=== PATIENT | female | born 1995 | race Caucasian/White ===

== ENCOUNTER 2020-05-26 18:00 | Emergency (ER) | payer BC ==
[2020-05-26] MEDS ORDERED: Sodium Chloride 0.9% 1,000 ML IV SCH (18:15)
[2020-05-26] MEDS ORDERED: Ondansetron 4 MG/2 ML SDV IVPUSH ONE (18:19)
--- NOTE | 2020-05-26 18:30 | EDM.PDOCBH ---
ED HPI GENERAL MEDICAL PROBLEM - General Stated Complaint: DISORIENTATED Time Seen by Provider: 05/26/20 18:26 Source of Information: Reports: Patient History Limitations: Reports: Intoxication - History of Present Illness INITIAL COMMENTS - FREE TEXT/NARRATIVE: Ivonne is brought by ambulance after she was found underneath a parked vehicle. [place],when she disappeared. She was found by a neighbor,apparently intoxicated. She complains of abdominal epigastric pain. She is not able to give much history.She is previously healthy except RA. - Related Data Allergies Allergy/AdvReac Type Severity Reaction Status Date / Time hydroxychloroquine Allergy Hives Verified 05/26/20 19:03 [From Plaquenil] Home Meds: Home Meds hydrOXYzine pamoate [Hydroxyzine Pamoate] 25 mg BID PRN 05/26/20 [History] ED ROS GENERAL - Review of Systems Review Of Systems: Unable To Obtain Reason Not Obtained: Altered mental status ED EXAM, BEHAVIORAL HEALTH - Physical Exam Exam: See Below Exam Limited By: Altered Mental Status General Appearance: Alert, No Apparent Distress Ears: Normal External Exam Nose: Normal Inspection Throat/Mouth: Normal Inspection Head: Atraumatic Neck: Normal Inspection Respiratory/Chest: No Respiratory Distress, Lungs Clear Cardiovascular: Normal Peripheral Pulses, Regular Rate, Rhythm (Female) Exam: Deferred Rectal (Female) Exam: Deferred Extremities: Normal Inspection Neurological: Alert. No: Normal Gait Psychiatric: Alert, Depressed Mood, Flat Affect, Disoriented. No: Normal Mood, Oriented Skin Exam: Warm, Dry, Intact COURSE, BEHAVIORAL HEALTH COMP - Course Vital Signs: Last Vital Signs Temp 96.7 F L 05/26/20 18:00 Pulse 80 05/26/20 18:00 Resp 16 05/26/20 18:00 BP 116/70 05/26/20 18:00 Pulse Ox 100 05/26/20 18:00 Orders, Labs, Meds: Active Orders 24 hr Category Date Time Status EKG Documentation Completion [RC] ASDIRECTED Care 05/26/20 18:03 Active Sodium Chloride 0.9% [Normal Saline] 1,000 ml Med 05/26/20 18:15 Active IV ASDIRECTED EKG 12 Lead [EK] Routine Ther 05/26/20 18:03 Ordered Medication Orders Sodium Chloride (Normal Saline) 1,000 mls @ 999 mls/hr IV ASDIRECTED BEVERLY Last Admin: 05/26/20 18:15 Dose: 999 mls/hr Documented by: KELSI Laboratory Tests 05/26/20 05/26/20 05/26/20 Range/Units 18:15 18:15 18:15 WBC 4.7 (4.5-12.0) X10-3/uL RBC 4.82 (3.23-5.20) x10(6)uL Hgb 13.4 (11.5-15.5) g/dL Hct 41.8 (30.0-51.3) % MCV 86.6 (80-96) fL MCH 27.7 (27.7-33.6) pg MCHC 32.0 L (32.2-35.4) g/dL RDW 12.8 (11.5-15.5) % Plt Count 283 (125-369) X10(3)uL MPV 7.2 L (7.4-10.4) fL Neut % (Auto) 55.0 (46-82) % Lymph % (Auto) 35.6 (13-37) % [place] % (Auto) 5.3 (4-12) % Eos % (Auto) 3 (1.0-5.0) % Baso % (Auto) 1 (0-2) % Neut # (Auto) 2.6 (1.6-8.3) # Lymph # (Auto) 1.7 (0.6-5.0) # [place] # (Auto) 0.2 (0.0-1.3) # Eos # (Auto) 0.2 (0.0-0.8) # Baso # (Auto) 0.0 (0.0-0.2) # Sodium 145 (135-145) mmol/L Potassium 3.1 L (3.5-5.3) mmol/L Chloride 109 (100-110) mmol/L Carbon Dioxide 21 (21-32) mmol/L BUN 9 (7-18) mg/dL Creatinine 0.6 (0.55-1.02) mg/dL Est Cr Clr Drug Dosing TNP Estimated GFR (MDRD) > 60 (>60) BUN/Creatinine Ratio 15.0 (9-20) Glucose 83 (80-116) mg/dL Calcium 8.4 L (8.6-10.2) mg/dL Total Bilirubin 0.3 (0.1-1.3) mg/dL AST 19 (5-25) IU/L ALT 18 (12-36) U/L Alkaline Phosphatase 62 (56-112) IU/L Total Protein 7.5 (6.0-8.0) g/dL Albumin 3.9 (3.5-5.2) g/dL Globulin 3.6 g/dL Albumin/Globulin Ratio 1.1 HCG, Quant (<5) mIU/mL Salicylates (<2.8) mg/dL Urine Opiates Screen (NEGATIVE) Ur Oxycodone Screen (NEGATIVE) Ur Propoxyphene Screen (NEGATIVE) Acetaminophen (<2) ug/mL Ur Barbituates Screen (NEGATIVE) Ur Tricyclics Screen (NEGATIVE) Ur Phencyclidine Scrn (NEGATIVE) Ur Amphetamine Screen (NEGATIVE) Urine MDMA Screen (NEGATIVE) U Benzodiazepines Scrn (NEGATIVE) U Cocaine Metab Screen (NEGATIVE) U Marijuana (THC) Screen (NEGATIVE) Ethyl Alcohol 0.27 H* (<0.03) % 05/26/20 05/26/20 05/26/20 Range/Units 18:15 18:15 19:30 WBC (4.5-12.0) X10-3/uL RBC (3.23-5.20) x10(6)uL Hgb (11.5-15.5) g/dL Hct (30.0-51.3) % MCV (80-96) fL MCH (27.7-33.6) pg MCHC (32.2-35.4) g/dL RDW (11.5-15.5) % Plt Count (125-369) X10(3)uL MPV (7.4-10.4) fL Neut % (Auto) (46-82) % Lymph % (Auto) (13-37) % [place] % (Auto) (4-12) % Eos % (Auto) (1.0-5.0) % Baso % (Auto) (0-2) % Neut # (Auto) (1.6-8.3) # Lymph # (Auto) (0.6-5.0) # [place] # (Auto) (0.0-1.3) # Eos # (Auto) (0.0-0.8) # Baso # (Auto) (0.0-0.2) # Sodium (135-145) mmol/L Potassium (3.5-5.3) mmol/L Chloride (100-110) mmol/L Carbon Dioxide (21-32) mmol/L BUN (7-18) mg/dL Creatinine (0.55-1.02) mg/dL Est Cr Clr Drug Dosing Estimated GFR (MDRD) (>60) BUN/Creatinine Ratio (9-20) Glucose (80-116) mg/dL Calcium (8.6-10.2) mg/dL Total Bilirubin (0.1-1.3) mg/dL AST (5-25) IU/L ALT (12-36) U/L Alkaline Phosphatase (56-112) IU/L Total Protein (6.0-8.0) g/dL Albumin (3.5-5.2) g/dL Globulin g/dL Albumin/Globulin Ratio HCG, Quant < 5 L (<5) mIU/mL Salicylates < 2.8 L (<2.8) mg/dL Urine Opiates Screen Negative (NEGATIVE) Ur Oxycodone Screen Negative (NEGATIVE) Ur Propoxyphene Screen Negative (NEGATIVE) Acetaminophen < 2 L (<2) ug/mL Ur Barbituates Screen Negative (NEGATIVE) Ur Tricyclics Screen Negative (NEGATIVE) Ur Phencyclidine Scrn Negative (NEGATIVE) Ur Amphetamine Screen Negative (NEGATIVE) Urine MDMA Screen Negative (NEGATIVE) U Benzodiazepines Scrn Negative (NEGATIVE) U Cocaine Metab Screen Negative (NEGATIVE) U Marijuana (THC) Screen Negative (NEGATIVE) Ethyl Alcohol (<0.03) % Medications Generic Name Dose Route Start Last Admin Trade Name Freq PRN Reason Stop Dose Admin Sodium Chloride 1,000 mls @ 999 mls/hr 05/26/20 18:15 05/26/20 18:15 Normal Saline IV 999 mls/hr ASDIRECTED BEVERLY Administration Discontinued Medications Generic Name Dose Route Start Last Admin Trade Name Freq PRN Reason Stop Dose Admin Ondansetron HCl 4 mg 05/26/20 18:19 05/26/20 18:30 Zofran IVPUSH 05/26/20 18:20 4 mg ONETIME ONE Administration Departure - Departure Time of Disposition: 20:10 Disposition: Home, Self-Care 01 Condition: Fair Clinical Impression: Altered mental status - Discharge Information Sepsis Event Note (ED) - Focused Exam Vital Signs: Vital Signs Temp Pulse Resp BP Pulse Ox 05/26/20 18:00 96.7 F L 80 16 116/70 100 - Problem List & Annotations (1) Altered mental status SNOMED Code(s): 281920646 Code(s): R41.82 - ALTERED MENTAL STATUS, UNSPECIFIED Status: Acute Current Visit: No Qualifiers: Altered mental status type: disorientation Qualified Code(s): R41.0 - Disorientation, unspecified (2) Elevated ETOH level SNOMED Code(s): 722671667 Code(s): R78.0 - FINDING OF ALCOHOL IN BLOOD Status: Acute Current Visit: Yes - Problem List Review Problem List Initiated/Reviewed/Updated: Yes - My Orders Last 24 Hours: My Active Orders 05/26/20 18:03 EKG Documentation Completion [RC] ASDIRECTED EKG 12 Lead [EK] Routine 05/26/20 18:15 Sodium Chloride 0.9% [Normal Saline] 1,000 ml IV ASDIRECTED - Assessment/Plan Last 24 Hours: My Active Orders 05/26/20 18:03 EKG Documentation Completion [RC] ASDIRECTED EKG 12 Lead [EK] Routine 05/26/20 18:15 Sodium Chloride 0.9% [Normal Saline] 1,000 ml IV ASDIRECTED Plan: She had A Bolus of IV Normal Saline. She improved. DC home
[2020-05-26 19:37] LABS: ACETAMINOPHEN < 2 ug/mL (<2)
== END 2020-05-26 20:46 | disposition home or self-care (01) ==
LOC: FB.ED 18:00
DX: R41.82 Altered mental status, unspecified (principal); Z88.8 Allergy status to other drugs, medicaments and biological substances
CPT/HCPCS: 36415; 80053; 80305-QW; 80307; 84702; 85025; 93005; 93010; 96361; 96374; 99283; 99284-25; J2405; J7030